=== PATIENT | male | born 1995 | race Caucasian/White ===

== ENCOUNTER 2020-04-26 21:27 | Emergency (ER) | payer BC, SELFPAY ==
[2020-04-26 21:29] VITALS: BP 148/81; PULSE 96; RESP 16; TEMP 36.7; O2SAT 99; BMI 22.4
[2020-04-26 22:00] VITALS: BP 135/77; PULSE 83; O2SAT 98
--- NOTE | 2020-04-26 22:07 | CT_ITS ---
PROCEDURE: CT CERVICAL SPINE WO CON CLINICAL INDICATION: ALEXANDRA COMPARISON: CT SPCERVWO CT cervical spine wo con from 06/18/2018 TECHNIQUE: Axial images obtained with sagittal and coronal reformats. All CT scans at the facility use one or more dose reduction, viz: automated exposure control, ma/kV adjustment per patient size (including targeted exams where dose is matched to indication, i.e. head), or iterative reconstruction technique. Axial spiral CT scanning performed of the cervical spine beginning at the base of the skull and continuing to the upper T-spine. 3-D multiplanar reconstruction with 3-D manipulation of volumetric data set in image rendering was completed by the radiologist and/or technologist with the supervision of the radiologist on independent workstation. FINDINGS: No fracture nor subluxation is evident. Normal prevertebral soft tissues. Facets, neural foramen and vertebral bodies intact and unremarkable. Normal C1/C2 relationships. Apices of lungs are clear with no acute findings. Left-sided mucosal thickening of the maxillary sinus with mild right-sided mucosal thickening of the right axillary sinus and mild bilateral ethmoid mucosal thickening. A metallic foreign body is present along the tip of the left mastoid region. IMPRESSION: Cervical spine intact with no fracture nor subluxation. Dictated by: Dominic Ramos MD 04/27/2020 12:21 Dominic Ramos MD in [facility] 04/27/2020 12:21
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
[2020-04-26 22:27] LABS: Chloride 101 mmol/L (98-107); Potassium 3.6 mmoL/L (3.5-5.1); Sodium 138 mmol/L (136-145)
[2020-04-26 22:28] LABS: Basophils % 0.2 % (0.1-2.0); Eosinophils # 0.1 K/mm3 (0.0-0.4); Eosinophils % 0.4 % (0.1-12.0); Hematocrit 51.1 % (42.0-52.0); Hemoglobin 17.3 g/dL (14.1-18.0); Lymphocytes # 2.9 K/mm3 (0.7-4.5); Lymphocytes % 15.6 % (10-50); Mean Corpuscular HGB Conc 33.8 g/dL (31.8-35.4); Mean Corpuscular Hemoglobin 30.4 pg (27.0-31.2); Mean Platelet Volume 7.8 fl (7.4-10.4); Monocytes # 1.7 K/mm3 (0.1-1.0); Monocytes % 8.9 % (1.7-9.3); Neutrophils # 13.9 K/mm3 (1.8-7.8); Neutrophils % 74.9 % (37.0-80.0); Platelet Count 298 K/mm3 (142-424); Red Blood Count 5.68 M/mm3 (4.60-6.20); Red Cell Distribution Width 12.8 % (11.5-17.5); White Blood Count 18.6 K/mm3 (4.8-10.8)
[2020-04-26 22:30] LABS: Alanine Aminotransferase 24 U/L (12-78); Albumin Level 5.3 g/dl (3.5-5.0); Albumin/Globulin Ratio 1.7 (1.1-1.8); Alkaline Phosphatase 67 U/L (38-126); Anion Gap 11.6 mEq/L (5-15); Aspartate Amino Transferase 35 U/L (17-59); Bilirubin,Total 0.5 mg/dl (0.2-1.3); Blood Urea Nitrogen 14 mg/dl (9-20); Carbon Dioxide 29 mmol/L (22.0-30.0); Creatinine Clearance Estimated 130 mL/min (50-200); Estimated Glomerular Filt Rate 103 ml/min (>60); GFR (African American) 124 ML/MIN (>60); Globulin 3.2 g/dL (1.3-3.2); MANUAL DIFFERENTIAL MANUAL DIFFERENTIAL (MANUAL DIFF); Total Protein,Serum 8.5 g/dl (6.3-8.2)
[2020-04-26 22:31] LABS: Calcium 9.9 mg/dl (8.4-10.2); Glucose 91 mg/dl (74-100); Lactic Acid 1.7 mmol/L (0.7-2.1)
--- NOTE | 2020-04-26 22:42 | XR_ITS ---
PROCEDURE: XR TIBIA FIBULA RT 2V CLINICAL INDICATION: leg pain Posttraumatic pain COMPARISON: No exams were available for comparison FINDINGS: No fracture or dislocation. No lytic or blastic change. There is normal mineralization. The joint spaces are well-preserved. No significant degenerative/arthritic changes. No erosive changes evident. Other findings:None. IMPRESSION: No acute findings. Dictated by: Dominic Ramos MD 04/27/2020 05:18 Dominic Ramos MD in [facility] 04/27/2020 05:18
--- NOTE | 2020-04-26 22:56 | PC.NURSE ---
return from rad
[2020-04-26 22:57] LABS: Erythrocyte Sedimentation Rate 3 mm/hr (0-15)
[2020-04-26 23:00] VITALS: BP 123/85; PULSE 85; O2SAT 99
[2020-04-26 23:15] LABS: Eosinophils % 1 % (0-3); Lymphocytes % 22 % (10-50); Neutrophils % 77 % (42-76); Platelet Estimate Normal; RBC Morphology Normal; Total Cells Counted 100
[2020-04-26 23:30] VITALS: BP 134/79; PULSE 81; O2SAT 97
[2020-04-26 23:52] VITALS: BP 134/79; PULSE 71; RESP 15; O2SAT 98
--- NOTE | 2020-04-26 23:53 | [facility].EDSYNC ---
ED Disposition Clinical Impression: Generalized seizure Contusion of head Qualifiers: Encounter type: initial encounter Contusion of head detail: scalp Qualified Code(s): S00.03XA - Contusion of scalp, initial encounter Disposition: Home, Self-Care Condition on Discharge: Good Instructions: DI for Seizure Disorder -- Adult Additional Instructions: call pcp for follow up Referrals: Maxi Cabrales [Primary Care Provider] - - Critical Care Critical Care Time: No Attestation: On 04/26/20, the high probability of a clinically significant, sudden or life threatening deterioration of the following system(s) required my full and direct attention, intervention and personal management. The time I documented below is in addition to time spent performing reported procedures but includes the following listed in this critical care notation. Medical Decision Making - Medical Records Medical records reviewed: Yes: I reviewed the patient's medical records. - Rivera Inquiry Pt receiving controlled substance: No Vital Signs: 04/26/20 21:29 04/26/20 22:00 04/26/20 23:00 Temperature 98.1 F Temperature Source Oral Pulse Rate [Left Radial] 96 H 83 85 Respiratory Rate 16 Blood Pressure [Right Arm] 148/81 H 135/77 123/85 Blood Pressure Mean [Right Arm] 103 96 97 Blood Pressure Source [Right Arm] Automatic Cuff Automatic Cuff Automatic Cuff Blood Pressure Position [Right Arm] Supine Supine Supine 02 Sat by Pulse Oximetry 99 98 99 Oxygen Delivery Method Room Air Room Air Room Air 04/26/20 23:30 04/26/20 23:52 04/27/20 00:00 Temperature Temperature Source Pulse Rate [Left Radial] 81 71 87 Respiratory Rate 15 Blood Pressure [Right Arm] 134/79 134/79 140/68 Blood Pressure Mean [Right Arm] 97 97 92 Blood Pressure Source [Right Arm] Automatic Cuff Automatic Cuff Automatic Cuff Blood Pressure Position [Right Arm] Supine Supine Supine 02 Sat by Pulse Oximetry 97 98 97 Oxygen Delivery Method Room Air Room Air Room Air - Lab Data Lab results reviewed: Yes: I reviewed the patient's lab results. Lab Results 04/26/20 21:53: WBC 18.6 H, RBC 5.68, Hgb 17.3, Hct 51.1, MCV 90.0, MCH 30.4, MCHC 33.8, RDW 12.8, Plt Count 298, MPV 7.8, Neut % (Auto) 74.9, Lymph % (Auto) 15.6, [place] % (Auto) 8.9, Eos % (Auto) 0.4, Baso % (Auto) 0.2, Neut # (Auto) 13.9 H, Lymph # (Auto) 2.9, [place] # (Auto) 1.7 H, Eos # (Auto) 0.1, Baso # (Auto) 0.0, Total Counted 100, Neutrophils % (Manual) 77 H, Lymphocytes % (Manual) 22, Eosinophils % (Manual) 1, Platelet Estimate Normal, RBC Morphology Normal 04/26/20 21:53: Sodium 138, Potassium 3.6, Chloride 101, Carbon Dioxide 29, Anion Gap 11.6, BUN 14, Creatinine 0.90, Estimated Creat Clear 130, Estimated GFR 103, Est GFR ( Amer) 124, Glucose 91, Calcium 9.9, Total Bilirubin 0.5, AST 35, ALT 24, Alkaline Phosphatase 67, C-Reactive Protein 1.0, Total Protein 8.5 H, Albumin 5.3 H, Globulin 3.2, Albumin/Globulin Ratio 1.7 04/26/20 21:53: Lactate 1.7 04/26/20 21:53: ESR 3 Result diagrams: 04/26/20 21:53 04/26/20 21:53 Orders (Tests/Meds): ED MEDICATIONS Generic Name Dose Route Start Last Admin Trade Name Freq PRN Reason Stop Dose Admin Sodium Chloride 1,000 mls @ 999 mls/hr 04/26/20 22:15 04/26/20 22:13 Sod Chlor 0.9% 1000ml Bag IV 04/26/20 23:15 999 mls/hr .Q1H1M LUCY Administration ORDERS Category Date Time Status CT cervical spine wo con Stat Cat Scan 04/26/20 22:[address] head/brain wo con Stat Cat Scan 04/26/20 22:07 Taken Chest XR 2 view (NOT portable) [XR chest 2V] Stat Exams 04/26/20 22:17 Taken Fibula/tibia XR right 2 views [XR tibia fibula RT 2V] Exams 04/26/20 22:42 Taken Stat - Radiology Data #1 Image(s): Chest, Pelvis Image Reviewed: Yes I reviewed the patient's radiology image Preliminary Findings: No Fracture Seen - CT Data CT Scan: Head, C-Spine Time Received: 00:[address] Reviewed: Yes: I have viewed the radiologist's interpretati
[2020-04-27] VITALS: BP 140/68; PULSE 87; O2SAT 97
[2020-04-27 00:49] VITALS: BP 138/74; PULSE 81; RESP 16; TEMP 36.6; O2SAT 99
== END 2020-04-27 00:51 | disposition home or self-care (01) ==
PROVIDERS: Emergency Provider Emergency Medicine; PCP Pediatrics
DX: S00.03XA Contusion of scalp, initial encounter (principal); G40.909 Epilepsy, unspecified, not intractable, without status epilepticus; W18.30XA Fall on same level, unspecified, initial encounter; Y92.71 Barn as the place of occurrence of the external cause; F17.210 Nicotine dependence, cigarettes, uncomplicated
CPT/HCPCS: 70450; 71046; 72125; 73590; 80053; 83605; 85007; 85025; 85651; 86140; 96365; 99283

== ENCOUNTER 2021-01-06 15:39 | Emergency (ER) | payer BC, SELFPAY ==
[2021-01-06 15:40] VITALS: BP 134/88; PULSE 81; RESP 18; TEMP 36.9; O2SAT 99; BMI 22.3
--- NOTE | 2021-01-06 15:59 | CT_ITS ---
PROCEDURE INFORMATION: Exam: CT Abdomen And Pelvis Without Contrast Exam date and time: 01/06/2021 3:59 PM Age: 25 years old Clinical indication: Abdominal pain; Additional info: Abd pain TECHNIQUE: Imaging protocol: Computed tomography of the abdomen and pelvis without contrast. Radiation optimization: All CT scans at this facility use at least one of these dose optimization techniques: automated exposure control; mA and/or kV adjustment per patient size (includes targeted exams where dose is matched to clinical indication); or iterative reconstruction. COMPARISON: CR XR CHEST 2V 04/26/2020 10:40 PM FINDINGS: Lungs: Atelectasis in the right middle lobe Liver: Normal. No mass. Gallbladder and bile ducts: Normal. No calcified stones. No ductal dilation. Pancreas: Normal. No ductal dilation. Spleen: Normal. No splenomegaly. Adrenal glands: Normal. No mass. Kidneys and ureters: There is no evidence of renal or ureteral calcifications. Stomach and bowel: Constipation throughout the colon; Mild bowel wall thickening in the ileum may represent enteritis. Series 3, image 92 and adjacent images. Appendix: Normal appendix Intraperitoneal space: Unremarkable. No free air. No significant fluid collection. Vasculature: Unremarkable. No abdominal aortic aneurysm. Lymph nodes: Unremarkable. No enlarged lymph nodes. Urinary bladder: Unremarkable as visualized. Reproductive: Unremarkable as visualized. Bones/joints: Unremarkable. No acute fracture. Soft tissues: Unremarkable. IMPRESSION: Mild bowel wall thickening in the ileum may represent enteritis. Series 3, image 92 and adjacent images.
[2021-01-06 16:24] LABS: Microscopic, Urine URINE MICROSCOPIC (MICROSCOPIC)
[2021-01-06 16:26] LABS: Appearance,Urine SL CLOUDY (Clear); Bilirubin,Urine Negative (Negative); Blood, Urine Negative (Negative); Color,Urine YELLOW (Yellow); Glucose,Urine (UA) Negative (Negative); Ketones,Urine Negative (Negative); Leukocyte Esterase,Urine Negative (Negative); Nitrate,Urine Negative (Negative); Protein,Urine Negative (Negative); Specific Gravity, Urine 1.025 (1.005-1.030); Urobilinogen,Urine 0.2 EU/dl (0.2)
[2021-01-06 16:29] LABS: Basophils # 0.1 K/mm3 (0-0.2); Basophils % 0.6 % (0.1-2.0); Eosinophils # 0.2 K/mm3 (0.0-0.4); Eosinophils % 1.4 % (0.1-12.0); Hematocrit 49.8 % (42.0-52.0); Hemoglobin 16.8 g/dL (14.1-18.0); Lymphocytes # 2.6 K/mm3 (0.7-4.5); Mean Corpuscular HGB Conc 33.7 g/dL (31.8-35.4); Mean Corpuscular Hemoglobin 28.6 pg (27.0-31.2); Mean Corpuscular Volume 84.8 fl (80-94); Mean Platelet Volume 7.3 fl (7.4-10.4); Monocytes % 7.4 % (1.7-9.3); Neutrophils # 9.2 K/mm3 (1.8-7.8); Neutrophils % 70.5 % (37.0-80.0); Platelet Count 322 K/mm3 (142-424); Red Blood Count 5.88 M/mm3 (4.60-6.20); Red Cell Distribution Width 12.9 % (11.5-17.5)
[2021-01-06 16:33] LABS: Chloride 104 mmol/L (98-107); Sodium 142 mmol/L (136-145)
[2021-01-06 16:35] LABS: Amylase 72 U/L (30-110); Blood Urea Nitrogen 14 mg/dl (9-20); Creatinine Clearance Estimated 145 mL/min (50-200); Estimated Glomerular Filt Rate 118 ml/min (>60); GFR (African American) 143 ML/MIN (>60)
[2021-01-06 16:36] LABS: Alanine Aminotransferase 20 U/L (12-78); Albumin Level 5.2 g/dl (3.5-5.0); Albumin/Globulin Ratio 1.5 (1.1-1.8); Alkaline Phosphatase 76 U/L (38-126); Aspartate Amino Transferase 30 U/L (17-59); Bilirubin,Total 0.6 mg/dl (0.2-1.3); Calcium 9.9 mg/dl (8.4-10.2); Carbon Dioxide 27 mmol/L (22.0-30.0); Globulin 3.5 g/dL (1.3-3.2); Glucose 104 mg/dl (74-100); Lipase 24 U/L (23-300); Total Protein,Serum 8.7 g/dl (6.3-8.2)
[2021-01-06 16:39] LABS: Bacteria,Urine 1+ /lpf; Mucus,Urine 3+ /lpf; WBC,Urine Occasional #/hpf (0-3)
[2021-01-06 16:55] VITALS: BP 128/75; PULSE 69; O2SAT 96
[2021-01-06 17:00] VITALS: BP 128/65; PULSE 72; O2SAT 96
--- NOTE | 2021-01-06 17:37 | [facility].EDGENADL ---
ED Disposition Clinical Impression: Epigastric pain Constipation Qualifiers: Constipation type: unspecified constipation type Qualified Code(s): K59.00 - Constipation, unspecified Disposition: Home, Self-Care Condition on Discharge: Good Instructions: DI for Acute Abdominal Pain, DI for Constipation Additional Instructions: Magnesium citrate, 1 bottle this evening, then MiraLAX for 5 days. Follow-up with primary care provider next week if symptoms persist. Additional instructions for ABDOMINAL PAIN: See your physician as soon as possible for further evaluation. Return immediately if worsening abdominal pain, vomiting, shortness of breath, fever, vomiting of blood or abdominal distention. Prescriptions: polyethylene glycoL 3350 [Miralax 17gm Packet] 17 gm PO DAILY #5 packet Transmission Status: Pending to [id number] Referrals: Maxi Cabrales [Primary Care Provider] - - Critical Care Critical Care Time: No Attestation: On 01/06/21, the high probability of a clinically significant, sudden or life threatening deterioration of the following system(s) required my full and direct attention, intervention and personal management. The time I documented below is in addition to time spent performing reported procedures but includes the following listed in this critical care notation. Medical Decision Making - Rivera Inquiry Pt receiving controlled substance: No Vital Signs: 01/06/21 15:40 01/06/21 16:55 Temperature 98.4 F Temperature Source Oral Pulse Rate 69 Pulse Rate [Right Radial] 81 Respiratory Rate 18 Blood Pressure 128/75 Blood Pressure [Right Arm] 134/88 Blood Pressure Mean 92 Blood Pressure Mean [Right Arm] 103 Blood Pressure Source [Right Arm] Automatic Cuff Blood Pressure Position [Right Arm] Sitting 02 Sat by Pulse Oximetry 99 96 Oxygen Delivery Method Room Air - Lab Data Lab Results 01/06/21 16:10: Urine Color Yellow, Urine Appearance Sl cloudy, Urine pH 6.0, Ur Specific [place] 1.025, Urine Protein Negative, Urine Glucose (UA) Negative, Urine Ketones Negative, Urine Blood Negative, Urine Nitrate Negative, Urine Bilirubin Negative, Urine Urobilinogen 0.2, Ur Leukocyte Esterase Negative, Urine WBC Occasional, Urine Bacteria 1+, Urine Mucus 3+ 01/06/21 16:10: WBC 13.0 H, RBC 5.88, Hgb 16.8, Hct 49.8, MCV 84.8, MCH 28.6, MCHC 33.7, RDW 12.9, Plt Count 322, MPV 7.3 L, Neut % (Auto) 70.5, Lymph % (Auto) 20.0, [place] % (Auto) 7.4, Eos % (Auto) 1.4, Baso % (Auto) 0.6, Neut # (Auto) 9.2 H, Lymph # (Auto) 2.6, [place] # (Auto) 1.0, Eos # (Auto) 0.2, Baso # (Auto) 0.1 01/06/21 16:10: Sodium 142, Potassium 4.0, Chloride 104, Carbon Dioxide 27, Anion Gap 15.0, BUN 14, Creatinine 0.80, Estimated Creat Clear 145, Estimated GFR 118, Est GFR ( Amer) 143, Glucose 104 H, Calcium 9.9, Total Bilirubin 0.6, AST 30, ALT 20, Alkaline Phosphatase 76, Total Protein 8.7 H, Albumin 5.2 H, Globulin 3.5 H, Albumin/Globulin Ratio 1.5, Amylase 72, Lipase 24 Result diagrams: 01/06/21 16:10 01/06/21 16:10 - CT Data CT Scan: Abdomen, Pelvis Time Received: 17:[address] Reviewed: Yes: I have viewed the radiologist's interpretation Findings Narrative: PROCEDURE INFORMATION: Exam: CT Abdomen And Pelvis Without Contrast Exam date and time: 01/06/2021 3:59 PM Age: 25 years old Clinical indication: Abdominal pain; Additional info: Abd pain TECHNIQUE: Imaging protocol: Computed tomography of the abdomen and pelvis without contrast. Radiation optimization: All CT scans at this facility use at least one of these dose optimization techniques: automated exposure control; mA and/or kV adjustment per patient size (includes targeted exams where dose is matched to clinical indication); or iterative reconstruction. COMPARISON: CR XR CHEST 2V 04/26/2020 10:40 PM FINDINGS: Lungs: Atelectasis in the right middle lobe Liver: Normal. No mass. Gallbladder and bile ducts: Normal. No c
[2021-01-06 18:58] VITALS: BP 142/78; PULSE 78; RESP 16; TEMP 36.6; O2SAT 98
== END 2021-01-06 19:00 | disposition home or self-care (01) ==
PROVIDERS: Emergency Provider Emergency Medicine; PCP Pediatrics
DX: K59.00 Constipation, unspecified (principal); R10.13 Epigastric pain; F17.210 Nicotine dependence, cigarettes, uncomplicated
CPT/HCPCS: 74176; 80053; 81001; 82150; 83690; 85025; 99282